=== PATIENT | male | born 1990 | race Caucasian/White ===

== ENCOUNTER 2016-12-05 14:10 | Inpatient (IN) | payer OTHER ==
--- NOTE | ~2016-12-05 | HP ---
Unit #: [id number] #: [id number] Patient: JENSEN POPE [id number] [place] [address] [id number] MR#: [id number] NAME: JENSEN POPE ROOM: P125 Age: 26 Sex: M Admission Date: 12/05/2016 : 1990 Attending Physician: Ronald Esparza M.D. Admitting Physician: Ronald Esparza M.D. Primary Care Physician: Jeison Doctor Not In System HISTORY AND PHYSICAL HISTORY OF PRESENT ILLNESS Jensen is a 26-year-old admitted to [address] [place] [address] with auditory and visual hallucinations. PAST MEDICAL HISTORY Nothing significant. PAST SURGICAL HISTORY Nothing reported. ALLERGIES No known drug allergies. SOCIAL HISTORY Smokes less than 1/2 pack per day. Drinks alcohol and uses marijuana on occasion. FAMILY HISTORY Medically noncontributory. REVIEW OF SYSTEMS CONSTITUTIONAL: No fever or chills. HEENT: Denies any sore throat, ear pain or runny nose. CARDIOVASCULAR: Denies chest pain, irregular heart rhythm or palpitations. CHEST: Denies shortness of breath or cough. No hemoptysis. GASTROINTESTINAL: Denies nausea, vomiting, diarrhea or chronic constipation. ENDOCRINE: Denies history of increased thirst or urination. No recent significant weight loss or gain. GENITOURINARY: Denies dysuria, frequency, or hematuria. SKIN: Denies any rashes. HEMATOLOGIC: Denies history of increased bleeding or bruising. MUSCULOSKELETAL: Denies any hot, swollen joints. No generalized muscle pain. NEUROLOGIC: Denies problems with vision or speech. No frequent, severe headaches. No numbness, tingling or weakness in any extremities. Denies loss of bladder or bowel control. CURRENT MEDICATIONS 1. Milk of magnesia p.r.n. 2. Maalox p.r.n. 3. Tylenol p.r.n. 4. Norvasc 5 mg every day. Unit #: [id number] #: [id number] Patient: JENSEN POPE 5. Zyprexa Zydis 10 mg q.8 hour p.r.n. PHYSICAL EXAMINATION GENERAL: Alert, well nourished, and in no apparent distress. VITAL SIGNS: Blood pressure 130/76, heart rate 80, respirations 16, temperature 98.6, weight 133 pounds, and height 5 feet, 8 inches. SKIN: Warm and dry without rash or lesion. HEENT: Normocephalic. TMs not viewed. Oral and nasal passages clear. Conjunctivae clear. PERRLA. EOMs intact. NECK: Supple without lymphadenopathy or thyromegaly. HEART: Regular rate and rhythm without murmur. LUNGS: Clear. ABDOMEN: Soft, nontender. : Not done. EXTREMITIES: No evidence of cyanosis, clubbing or edema. Moves all without focal deficit. NEUROLOGICAL: Grossly within normal limits. Cranial Nerves: II: Visual christensen are intact. III, IV AND : Extraocular movements are intact. Pupils are equal, round and reactive to light. V: Facial sensation is grossly normal. VII: Facial movements and expression are normal. VIII: Auditory acuity grossly intact. IX, X: Uvula is midline. Phonation is normal. XI: Patient shrugs shoulders and turns head normally. XII: Tongue protrudes in the midline. Sensory and Motor Function: Sensory and motor sensation is grossly normal. Motor: moves all extremities well. Coordination: Gait is normal. Deep Tendon Reflexes: Intact. IMPRESSION Psychiatric admission. RECOMMENDATIONS PSYCHIATRIC: Per psychiatrist. MEDICAL: I see no contraindication to participating in facility's activities. MEDICAL PROGNOSIS Good. MEDICAL CONDITION Stable. Dictated by... Kerri Hidalgo P.A.-C. for Julieth Maguire/alecia TD: 12/06/2016 06:36 JOB #: [id number] Unit #: [id number] #: [id number] Patient: JENSEN POPE HISTORY AND PHYSICAL Page 1 of 1 X Kerri Hidalgo HISTORY AND PHYSICAL
--- NOTE | ~2016-12-05 | PA ---
Unit #: [id number] #: [id number] Patient: TAMIKO POPE [id number] [facility] [address] [place] [address] [id number] I MR#: [id number] NAME: TAMIKO POPE ROOM: P121 Age: 26 Sex: M Admission Date: 12/05/2016 : 1990 Date of Assessment: 12/06/2016 Attending Physician: Ronald Esparza M.D. Admitting Physician: Ronald Esparza M.D. Primary Care Physician: Generic Doctor Not In System PSYCHIATRIC ASSESSMENT IDENTIFYING INFORMATION The patient is a 26-year-old white male admitted in transfer from [facility] with increasing psychosis and suicidal ideation. INFORMANT(S) Chart, the patient provides little in the way of useful history. CHIEF COMPLAINT None given. HISTORY OF PRESENT ILLNESS The patient is a 26-year-old white male admitted in transfer from [facility]. He had been taken there by his father who was reporting that the patient had been discharged from [facility] 2 days prior to his readmission to this facility. The patient has been "talking out of his mind, waving his arms around at things that aren't there." The patient expressed suicidal ideation and stated that he needed to kill himself. The patient when seen today is noted to be quite bizarre during interview but does not voice suicidal ideation. The patient has no prior history of suicidal ideation or self-harm per report. The patient was hospitalized at [facility] per mental inquest warrant. It is unclear whether he left that facility with an agreed order but apparently was not prescribed any psychotropic medications. His only medication at this time being amlodipine. The patient does admit to abuse of cannabis and states that he may have used some synthetic marijuana in the past. The patient was bizarre in the emergency room and aggressive and required IM Haldol. It was our hope that the patient be returned to [facility] but apparently that facility has not surprisingly declined to readmit the patient. PAST PSYCHIATRIC HISTORY As noted previously, the patient was just discharged from [facility] where he had been taken related to psychosis. FAMILY HISTORY Not obtained. SOCIAL HISTORY The patient lives with his parents. He admits to abuse of cannabis and his drug screen is in fact positive for this substance. MEDICAL HISTORY Significant for history of hypertension. Unit #: [id number] #: [id number] Patient: TAMIKO POPE MEDICATION HISTORY [facility]. ALLERGIES None reported. MENTAL STATUS EXAM At this time, reveals the patient to be well-developed, well-nourished white male appearing his stated age. He is in no apparent physical distress at time of examination. He is awake and alert but testing of orientation is not possible secondary to the patient's inability to comply. Speech is tangential. Speech is tangential and occasionally bizarre. Formal memory testing, cognition are secondary to patient's inability to comply. The patient reports no current suicidal or homicidal ideation. He does exhibit significant disorganization of thought. His judgement and insight appear to be significantly impaired. ASSETS AND LIABILITIES Patient's assets to be assessed. Liabilities, chronicity and severity of illness. ADMITTING DIAGNOSES 1. Schizophreniform disorder. 2. Cannabis use disorder. 3. Hypertension. PSYCHIATRIC PLAN/TREATMENT GOALS The patient will be empirically started on Zyprexa 10 mg q.a.m. and 20 mg at h.s. to address his very acute psychotic symptoms. We will seek old records from [facility] and will in fact look to transfer the patient to that facility given his recent discharge from that facility and probable need for mental inquest process. ESTIMATED LENGTH OF STAY Ten to fourteen days. Dictated by... Ronald Esparza M.D. SATISH/joanie TD: 12/06/2016 15:45 JOB #: [id number] PSYCHIATRIC ASSESSMENT Page 1 of 1 X Ronald Esparza MD X PSYCHIATRIC ASSESSMENT
--- NOTE | ~2016-12-05 | DS ---
Unit #: [id number] #: [id number] Patient: TAMIKO POPE [id number] [facility] [address] [place] [address] [id number] I MR#: [id number] NAME: TAMIKO POPE ROOM: P131 Age: 26 Sex: M Admission Date: 12/05/2016 : 1990 Discharge Date: 12/14/2016 Attending Physician: Ronald Esparza M.D. Primary Care Physician: Generic Doctor Not In System DISCHARGE SUMMARY REASON FOR ADMISSION The patient is a 26-year-old white male, admitted to the [address] [place] [address] with hallucinogen-induced psychosis. HOSPITAL COURSE The patient was admitted and placed on suicide precautions. He was initially begun on Zyprexa Zydis q.8 hours p.r.n. agitation due to psychosis. As his hospital course progressed, his psychosis seemed to worsen leading this physician to believe for a time that the patient may be exhibiting symptoms of the first psychotic break or bipolar manic episode; however, the patient's symptoms did seem to subside and review of the record from [facility] did indicate that it was their feeling that the patient's symptoms were secondary to abuse of hallucinogenic substances specifically synthetic marijuana. By 12/14/2016, the patient was in bright spirits and denied any psychotic symptoms. Discharge was ordered. 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 DISPOSITION ON DISCHARGE The patient is discharged on no psychotropic medications. FOLLOWUP Followup will take place through the auspices of community chemical dependency treatment resources in the [facility]. The patient's turn is strongly urged to rid himself of the "bag of stuff" which he had used both prior to his admission to [facility] and this facility. Dictated by... Ronald Esparza M.D. CB/blanche TD: 12/14/2016 16:14 JOB #: [id number] Unit #: [id number] #: [id number] Patient: TAMIKO POPE DISCHARGE SUMMARY Page 1 of 1 X Ronald Esparza MD X DISCHARGE SUMMARY
--- NOTE | ~2016-12-05 | PN ---
Unit #: [id number] #: [id number] Patient: TAMIKO POPE [id number] [facility] [address] [place] [address] [id number] MR#: [id number] NAME: TAMIKO POPE ROOM: P121 Age: 26 Sex: M Admission Date: 12/05/2016 : 1990 Attending Physician: Ronald Esparza M.D. Admitting Physician: Ronald Esparza M.D. Primary Care Physician: Jeison Doctor Not In System [facility] PROGRESS NOTES DATE 12/09/2016 DISCUSSION The patient is considerably more aggressive, loud, labile and psychotic today. Seemingly more consistent with a true bipolar manic episode. Unfortunately we have not received copies of the patient's record from [facility] to assess what transpired at that facility. Fortunately the patient has signed in for voluntary treatment and this will allow to keep the patient much longer should he decide to leave as another 72 hour hold can be initiated and will not include the weekend. He continues on aggressively dose of Zyprexa but unfortunately is refusing medications and will shortly probably require p.r.n. medication given his degree of agitation of the time of evaluation. Dictated by... Ronald Esparza M.D. CB/niko TD: 12/09/2016 20:57 JOB #: [id number] [facility] PROGRESS NOTES Page 1 of 1 X Ronald Esparza MD X PROGRESS NOTE
--- NOTE | ~2016-12-05 | PN ---
Unit #: [id number] #: [id number] Patient: TAMIKO POPE [id number] [facility] [address] [place] [address] [id number] I MR#: [id number] NAME: TAMIKO POPE ROOM: P131 Age: 26 Sex: M Admission Date: 12/05/2016 : 1990 Attending Physician: Ronald Esparza M.D. Admitting Physician: Ronald Esparza M.D. Primary Care Physician: Jeison Doctor Not In System [facility] PROGRESS NOTES DATE 12/13/2016 DISCUSSION Review of the patient's record from does indicate the suspicion that his psychotic symptoms were substance induced and his rapid improvement at this point would seem to confirm this. I will, however, continue Zyprexa with a reduced dose to 10 mg this evening. Should the patient sustain progress discharge will likely take place tomorrow with a moeller warning to the patient regarding his ongoing abuse of synthetic marijuana. Dictated by... Ronald Esparza M.D. CB/joanie TD: 12/13/2016 15:15 JOB #: [id number] [facility] PROGRESS NOTES Page 1 of 1 X Ronald Esparza MD X PROGRESS NOTE
--- NOTE | ~2016-12-05 | PN ---
Unit #: [id number] #: [id number] Patient: TAMIKO POPE [id number] [facility] [address] [place] [address] [id number] MR#: [id number] NAME: TAMIKO POPE ROOM: P121 Age: 26 Sex: M Admission Date: 12/05/2016 : 1990 Attending Physician: Ronald Esparza M.D. Admitting Physician: Ronald Esparza M.D. Primary Care Physician: Jeison Doctor Not In System [facility] PROGRESS NOTES DATE 12/10/2016 DISCUSSION The patient did receive an IM injection of Haldol, Benadryl, and Ativan yesterday and seems significantly improved though he continues to refuse p.o. medication which has been prescribed by this physician. I have spoken with the patient today regarding my belief that he may be suffering from a bipolar manic episode. However, the patient's judgment and insight remains somewhat significantly impaired (1) __ related to this even after an attempt by this physician to explain the symptoms that he has been exhibiting as they can be explained by such an episode. Dictated by... Ronald Esparza M.D. CB/patrick TD: 12/10/2016 14:49 JOB #: [id number] [facility] NOTES Page 1 of 1 X Ronald Esparza MD X PROGRESS NOTE
--- NOTE | ~2016-12-05 | PN ---
Unit #: [id number] #: [id number] Patient: TAMIKO POPE [id number] [facility] [address] [place] [address] [id number] MR#: [id number] NAME: TAMIKO POPE ROOM: P131 Age: 26 Sex: M Admission Date: 12/05/2016 : 1990 Attending Physician: Ronald Esparza M.D. Admitting Physician: Ronald Esparza M.D. Primary Care Physician: Generic Doctor Not In System [facility] PROGRESS NOTES DATE 12/11/2016 DISCUSSION The patient does seem improved but continues to refuse Zyprexa and all of the medications though he reports to this physician that he has been compliant. I have again spoken with the patient today regarding I believe that he may be in a manic phase of bipolar disorder however the patient seems less than invested in learning about this diagnostic possibility. We continue current treatment and we will continue to offer medications to the patient. He is at this point still a voluntary patient having signed in on Monday. Dictated by... Ronald Esparza M.D. CB/niko TD: 12/12/2016 02:59 JOB #: [id number] [facility] PROGRESS NOTES Page 1 of 1 X Ronald Esparza MD X PROGRESS NOTE
--- NOTE | ~2016-12-05 | PN ---
Unit #: [id number] #: [id number] Patient: TAMIKO POPE [id number] [facility] [address] [place] [address] [id number] I MR#: [id number] NAME: TAMIKO POPE ROOM: P121 Age: 26 Sex: M Admission Date: 12/05/2016 : 1990 Attending Physician: Ronald Esparza M.D. Admitting Physician: Ronald Esparza M.D. Primary Care Physician: Jeison Doctor Not In System [facility] PROGRESS NOTES DATE 12/07/2016 DISCUSSION The patient seems a bit clearer today. It does appear that he was discharged from [facility] with no psychotropic medications leading this physician to believe that his psychotic symptoms were substance-induced. The patient does admit to smoking spice outside the hospital reporting that after his discharge from [facility] he "smoked some of the pot out of the same bag" as he had been using at the of his admission to [facility]. He was gently but firmly confronted with fact that this is probably adulterated marijuana and is causing him to become quite psychotic and that it might be in his best interest to dispose off his stash. Dictated by... Ronald Esparza M.D. CB/patrick TD: 12/07/2016 14:13 JOB #: [id number] [facility] PROGRESS NOTES Page 1 of 1 X Ronald Esparza MD X PROGRESS NOTE
--- NOTE | ~2016-12-05 | PN ---
Unit #: [id number] #: [id number] Patient: TAMIKO POPE [id number] [facility] [address] [place] [address] [id number] I MR#: [id number] NAME: TAMIKO POPE ROOM: P131 Age: 26 Sex: M Admission Date: 12/05/2016 : 1990 Attending Physician: Ronald Esparza M.D. Admitting Physician: Ronald Esparza M.D. Primary Care Physician: Jeison Doctor Not In System [facility] PROGRESS NOTES DATE 12/12/2016 DISCUSSION The patient offers no new complaints today. He has been selectively compliant with Zyprexa after complying with medication yesterday he refused doses this morning complaining of over sedation. We continue current treatment and are looking at discharge within the next few days should the patient's progress continue. Dictated by... Ronald Esparza M.D. CB/niko TD: 12/13/2016 01:16 JOB #: [id number] [facility] PROGRESS NOTES Page 1 of 1 X Ronald Esparza MD PROGRESS NOTE
== END 2016-12-14 14:00 | disposition home or self-care (01) | DRG 897 ==
LOC: P2S 14:10 → P1S 14:34
DX: F16.150 Hallucinogen abuse with hallucinogen-induced psychotic disorder with delusions (principal); R45.851 Suicidal ideations; I10 Essential (primary) hypertension; F16 Hallucinogen related disorders; F17.210 Nicotine dependence, cigarettes, uncomplicated
CPT/HCPCS: J1200; J1630; J2060